=== PATIENT | male | born 1950 | race Caucasian/White ===

== ENCOUNTER → 2019-01-25 | Outpatient (CLI) | payer MEDICARE ==
[~2019-01-25] MED LIST: IOPAMIDOL 370 MG/ML 200 ML INFUS..BTL INJ ONE; SODIUM CHLORIDE 0.9% 100 ML 100 ML ONE; SODIUM CHLORIDE 0.9% 50ML 0 ML ONE
[2019-01-25 13:02] LABS: CREATININE, SERUM 1.24 mg/dL (0.72-1.25)
--- NOTE | 2019-01-25 15:06 | Diagnostic Imaging Report ---
EXAM: CT Abdomen and Pelvis WITH intravenous contrast - Hematuriaprotocol INDICATION: Hematuria COMPARISON: None. TECHNIQUE: Abdomen and pelvis were scanned utilizing a multidetector helical scanner from the lung base to the pubic symphysis before and after administration of IV contrast. Coronal and sagittal reformations were obtained. Hematuria protocol was used. Scan was performed prior to contrast administration and during arterial phase. IV CONTRAST: 100 mL of Isovue 370 ORAL CONTRAST: Water COMPLICATIONS: None RADIATION DOSE: Total DLP: 558.8 mGy*cm Dose modulation, iterative reconstruction, and/or weight based adjustment of the mA/kV was utilized to reduce the radiation dose to as low as reasonably achievable. FINDINGS: LOWER THORAX: Multiple bilateral pulmonary nodules, for example a 6 mm right lower lobe nodule adjacent to the major fissure (series 3 image 8), a lingular 5 mm nodule (series 3 image 13) and a left lower lobe 7 mm nodule (series 3 image 1). Atherosclerotic coronary artery calcifications. HEPATOBILIARY: 8 mm hypodensity in the right liver (series 6 image 29) is too small to adequately characterize. No other focal liver lesions. Normal gallbladder. SPLEEN: No splenomegaly. PANCREAS: No focal masses or ductal dilatation. ADRENALS: No adrenal nodules. KIDNEYS/URETERS: 9 mm left lower pole renal calculus. 4 mm right lower pole renal calculus. No hydronephrosis. No ureteral calculi. 2.5 cm left upper pole simple renal cyst. 1.4 cm right lower pole simple renal cyst. Arterial phase images do not adequately opacified the ureters and assessment cannot be reliably made for urothelial mass lesion. PELVIC ORGANS/BLADDER: Prostatomegaly to 5.5 cm. PERITONEUM / RETROPERITONEUM: No free air or fluid. LYMPH NODES: No lymphadenopathy. VESSELS: Infrarenal abdominal aortic aneurysm measures up to 6.4 x 6.3 cm with extensive mural thrombus. There is turbulent flow throughout the aortic lumen and decreased contrast enhancement of the lower extremity arteries beyond the aneurysm sac. 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 Extensive atherosclerotic calcifications of the aorta and major branches. GI TRACT: Sigmoid and descending colon diverticulosis. No CT evidence of diverticulitis. No abnormal bowel wall thickening. No bowel obstruction. Normal appendix. BONES AND SOFT TISSUES: No acute osseous injury. No suspicious lytic or blastic lesions. IMPRESSION: Large infrarenal abdominal aortic aneurysm measuring up to 6.4 x 6.3 cm with extensive mural thrombus. 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 9 mm left lower pole renal calculus. 4 mm right lower pole renal calculus. No hydronephrosis. Diverticulosis with no CT evidence of diverticuli is. Multiple bilateral pulmonary nodules, the largest of which measures up to 7 mm in the left lower lobe. Further evaluation with dedicated chest CT in 3 months is recommended. Signed by: Katia Goode MD on 01/25/2019 3:03 PM
== END ==
LOC: CT 12:19
PROVIDERS: ATTEND Family Medicine
DX: R31.9 Hematuria, unspecified (principal); N20.0 Calculus of kidney; R91.8 Other nonspecific abnormal finding of lung field; K76.9 Liver disease, unspecified; Z86.79 Personal history of other diseases of the circulatory system
CPT/HCPCS: 36415; 74174; 82565; 84520; Q9967

== ENCOUNTER → 2019-02-14 | Outpatient (CLI) | payer MEDICARE ==
--- NOTE | 2019-02-14 14:23 | Diagnostic Imaging Report ---
EXAMINATION: CHEST 2 VIEWS INDICATION: Pre-operative, COPD COMPARISON: None FINDINGS: LINES/TUBES:None LUNGS:The lungs are well-inflated. No focal consolidation or pulmonary edema. PLEURA:No pleural effusion or pneumothorax. MEDIASTINUM:The cardiomediastinal silhouette appears normal in size and shape. Atherosclerotic calcifications of the thoracic aorta. BONES/SOFT TISSUES:No acute osseous injury. ABDOMEN:No free air under the diaphragm. IMPRESSION: No focal pneumonia or pulmonary edema. Signed by: Katia Goode MD on 02/14/2019 2:19 PM
== END ==
LOC: RAD 13:14
PROVIDERS: ATTEND Internal Medicine Critical Care Medicine
DX: J44.9 Chronic obstructive pulmonary disease, unspecified (principal)
CPT/HCPCS: 71046

== ENCOUNTER → 2019-03-25 | Day surgery (SDC) | payer MEDICARE ==
[2019-03-20 12:31] LABS: BASOPHILS # (AUTO) 0.1 (0.0-0.1); BASOPHILS % 0.5 % (0.0-1.0); EOSINOPHILS # (AUTO) 0.1 (0.0-0.4); EOSINOPHILS % 1.3 % (0.0-6.0); HEMOGLOBIN 16.4 g/dL (14.0-18.0); LYMPHOCYTES # (AUTO) 1.9 (1.0-3.2); LYMPHOCYTES % 20.6 % (18.0-39.1); MEAN CORPUSCULAR HEMOGLOBIN 32.1 pg (28-32); MEAN CORPUSCULAR HGB CONC 34.9 g/dL (31-35); MONOCYTES # (AUTO) 0.7 (0.2-0.8); MONOCYTES % 7.4 % (4.4-11.3); NEUTROPHILS # (AUTO) 6.5 (2.1-6.9); NEUTROPHILS % 69.9 % (38.7-80.0); PLATELET COUNT 133 x10e3/uL (140-360); RED BLOOD COUNT 5.11 x10e6/uL (4.3-5.7)
[~2019-03-25] MED LIST changes: +ALPRAZOLAM1 MG PO; +ASPIR 8181 MG PO; +FENTANYL CITRATE/PF 100MCG/2 ML INJ ONE; +FISH OIL 1,0001 EAC2 PO; +FLOMAX0.4 MG PO; +HYOSCYAMINE 0.125 MG TAB ONE; -IOPAMIDOL 370 MG/ML 200 ML INFUS..BTL INJ ONE; +METAMUCIL660 GM PEG; +METOPROLOL SUCC50 MG PO; +MIDAZOLAM HCL 2 MG/2 ML VIAL ONE; +NICODERM CQ1 EAC1 TOP; +PROPOFOL IV EMULSION 10 MG/ML 50 ML VIAL ONE; -SODIUM CHLORIDE 0.9% 100 ML 100 ML ONE; -SODIUM CHLORIDE 0.9% 50ML 0 ML ONE; +VITAMIN D31000 UNI1 PO; +[UNRECOGNIZED DRUG - OTHER] PO
--- OUTSIDE RECORDS SUMMARY | 2019-03-25 11:56 | XMS REPORT ---
[facility] Address Unknown Phone Unavailable Care Team Providers Care Sales Performance Manager Name Role Phone VISHAL PACHECO Unavailable Unavailable KAVON KELLY Unavailable Unavailable Problems This patient has no known problems. Allergies, Adverse Reactions, Alerts This patient has no known allergies or adverse reactions. Medications This patient has no known medications. Results Test Description Test Time Test Comments Text Results Atomic Results Result Comments CHEST 2 VIEWS 2019-02-14 14:18:00 [place] [address] Patient Name: JOHNNY MORALES MR #: [id number] : 1950 Age/Sex: 68/M Req #: [id number] Adm Physician: Ordered by: VISHAL PACHECO MD Report #: [id number] Location: [facility] Room/Bed: Procedure: [id number] DX/CHEST 2 VIEWS Exam Date: 02/14/19 Exam Time: 1325 REPORT STATUS: Signed EXAMINATION: CHEST 2 VIEWS INDICATION: Pre-operative , COPD COMPARISON: None FINDINGS: LINES/TUBES:None LUNGS:The lungs are well-inflated. No focal consolidation or pulmonary edema. PLEURA:No pleural effusion or pneumothorax. MEDIASTINUM:The cardiomediastinal silhouette appears normal in size and shape. Atherosclerotic calcifications of the thoracic aorta. BONES/SOFT TISSUES:No acute osseous injury. ABDOMEN:No free air under the diaphragm. IMPRESSION: No focal pneumonia or pulmonary edema. Signed by: Adalberto Ji MD on 02/14/2019 2:19 PM Dictated By: ADALBERTO JI MD 18 Transcribed By: ALYSIA on 02/14/191418 COPY TO: VISHAL PACHECO MD CTA ABD/PELVIS 2019-01-25 14:49:00 [place] [address] Patient Name: JOHNNY MORALES MR #: [id number] : 1950 Age/Sex: 68/M Req #: [id number] Adm Physician: Ordered by: KAVON KELLY DO Report #: [id number] Location: CT Room/Bed: Procedure: [id number] CT/CTA ABD/PELVIS Exam Date: 01/25/19 Exam Time: 1340 REPORT STATUS: Signed EXAM: CT Abdomen and Pelvis WITH intravenous contrast - Hematu riaprotocol INDICATION: Hematuria COMPARISON: None. TECHNIQUE: Abdomen and pelvis were scanned utilizing a multidetector helical scanner from the lung base to the pubic symphysis before and after administration of IV contrast. Coronal and sagittal reformations were obtained. Hematuria protocol was used. Scan was performed prior to contrast administration and during arterial phase. IV CONTRAST: 100 mL of Isovue 370 ORAL CONTRAST: Water COMPLICATIONS: None RADIATION DOSE: Total DLP: 558.8 mGy*cm Dose modulation, iterative reconstruction, and/or weight based adjustment of the mA/kV was utilized to reduce the radiation dose to as low as reasonably achievable. FINDINGS: LOWER THORAX: Multiple bilateral pulmonary nodules, for example a 6 mm right lower lobe nodule adjacent to the major fissure (series 3 image 8), a lingular 5 mm nodule (series 3 image 13) and a left lower lobe 7 mm nodule (series 3 image 1). Atherosclerotic coronary artery calcifications. HEPATOBILIARY: 8 mm hypodensity in the right liver (series 6 image 29) is too small to adequately characterize. No other focal liver lesions. Normal gallbladder. SPLEEN: No splenomegaly. PANCREAS: No focal masses or ductal dilatation. ADRENALS: No adrenal nodules. KIDNEYS/URETERS: 9 mm left lower pole renal calculus. 4 mm right lower pole renal calculus. No hydronephrosis. No ureteral calculi. 2.5 cm left upper pole simple renal cyst. 1.4 cm right lower pole simple renal cyst. Arterial phase images do not adequately opacified the ureters and assessment cannot be reliably made for urothelial mass lesion. PELVIC ORGANS/BLADDER: Prostatomegaly to 5.5 cm. PERITONEUM / RETROPERITONEUM: No free air or fluid. LYMPH NODES: No lymphadenopathy. VESSELS: Infrarenal abdominal aortic aneurysm measures up to 6.4 x 6.3 cm with extensive mural thrombus. There is turbulent flow throughout the aortic lumen and decreased co ntrast enhancement of the lower extremity arteries beyond the aneurysm sac. 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 Extensive atherosclerotic calcifications of the aorta and major branches. GI TRACT: Sigmoid and descending colon diverticulosis. No CT evidence of diverticulitis. No abnormal bowel wall thickening. No bowel obstruction. Normal appendix. BONES AND SOFT TISSUES: No acute osseous injury. No suspicious lytic or blastic lesions. IMPRESSION: Large infrarenal abdominal aortic aneurysm measuring up to 6.4 x 6.3 cm with extensive mural thrombus. 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 9 mm left lower pole renal calculus. 4 mm right lower pole renal calculus. No hydronephrosis. Diverticulosis with no CT evidence of diverticuli is. Multiple bilateral pulmonary nodules, the largest of which measures up to 7 mm in the left lower lobe. Further evaluation with dedicated chest CT in 3 months is recommended. Signed by: Adalberto Ji MD on 01/25/2019 3:03 PM Dictated By: ADALBERTO JI MD [id number] Transcribed By: ALYSIA on 01/25/19 1508 COPY TO: KAVON KELLY DO
--- NOTE | 2019-03-25 17:38 | Operative Report ---
DATE OF PROCEDURE: 03/25/2019 SURGEON: Tono Leung MD PROCEDURE: Colonoscopy with polypectomy. INDICATIONS FOR COLONOSCOPY: Surveillance colonoscopy, personal history of colon polyps, positive Cologuard test. MEDICATIONS: The patient was done under MAC, please see anesthesiologist's note. PROCEDURE IN DETAIL: With the patient in left lateral decubitus position, a flexible fiberoptic Olympus colonoscope was inserted into the rectum with ease and advanced all the way to the cecum. It was then withdrawn slowly and scattered diverticular disease was noted pretty much throughout. The mucosa overlying the ascending colon grossly appeared to be within normal limits. One polyp was hot snared from the transverse colon. One polyp was hot snared and one polyp was cold snared from the descending colon. Five polyps were hot snared from the sigmoid colon. One polyp was hot snared and one polyp was hot biopsied from the rectum. The scope was then retroflexed into the distal rectum and small internal hemorrhoids were noted, none of which was actively bleeding. The scope was then straightened out, it was subsequently withdrawn. The patient tolerated the procedure well. IMPRESSION: 1. Diverticulosis. 2. Transverse colon polyp, hot snared. 3. Descending colon polyps x2, one hot snared and one cold snared. 4. Sigmoid colon polyps x5, hot snared. 5. Rectal polyps x2, one hot biopsied and one hot snared. 6. Internal hemorrhoids, none actively bleeding. PLAN: Follow up histology. Initiate high-fiber, low-fat diet. Initiate high-fiber supplement. The patient might benefit from a followup colonoscopy in 1 to 2 years. A total of 10 polyps were removed. Tono Leung MD [facility] [place], [place]/GUY /[id number] cc: DO Bismark Kaufman MD
== END | disposition home or self-care (01) ==
LOC: OR 11:53
PROVIDERS: ATTEND Internal Medicine Gastroenterology
DX: R19.5 Other fecal abnormalities (principal); D12.3 Benign neoplasm of transverse colon; D12.4 Benign neoplasm of descending colon; D12.5 Benign neoplasm of sigmoid colon; K62.1 Rectal polyp; K62.5 Hemorrhage of anus and rectum; K59.09 Other constipation; K57.30 Diverticulosis of large intestine without perforation or abscess without bleeding; K62.89 Other specified diseases of anus and rectum; K64.8 Other hemorrhoids; I10 Essential (primary) hypertension; J44.9 Chronic obstructive pulmonary disease, unspecified; I71.4 Abdominal aortic aneurysm, without rupture; Z88.0 Allergy status to penicillin; Z88.2 Allergy status to sulfonamides; Z79.82 Long term (current) use of aspirin; Z87.891 Personal history of nicotine dependence
CPT/HCPCS: 36415; 45384; 45385; 85025; 88305; J2250; J2704; J3010

== ENCOUNTER 2019-07-06 03:56 | Observation (INO) | payer MEDICARE ==
[~2019-07-06] VITALS: Ht 172.7 cm; Wt 77.1 kg
[~2019-07-06 03:56] MED LIST changes: -FENTANYL CITRATE/PF 100MCG/2 ML INJ ONE; -HYOSCYAMINE 0.125 MG TAB ONE; -MIDAZOLAM HCL 2 MG/2 ML VIAL ONE; -PROPOFOL IV EMULSION 10 MG/ML 50 ML VIAL ONE
[2019-07-06] MEDS ORDERED: ONDANSETRON HCL INJ 2MG/ML 2ML 2 MG/ML VIAL IV STA (04:08)
[2019-07-06] MEDS ORDERED: KETOROLAC TROMETHAMINE 30 MG/ML VIAL IV STA ×2 (04:08→06:28)
[2019-07-06] MEDS ORDERED: SODIUM CHLORIDE 0.9% 1000ML 1,000 ML IV SCH (04:15)
[2019-07-06 04:17] LABS: BASOPHILS % 0.4 % (0.0-1.0); EOSINOPHILS % 0.1 % (0.0-6.0); HEMATOCRIT 45.1 % (38.2-49.6); HEMOGLOBIN 15.2 g/dL (14.0-18.0); LYMPHOCYTES # (AUTO) 1.7 (1.0-3.2); LYMPHOCYTES % 16.7 % (18.0-39.1); MEAN CORPUSCULAR HEMOGLOBIN 29.9 pg (28-32); MEAN CORPUSCULAR HGB CONC 33.7 g/dL (31-35); MEAN CORPUSCULAR VOLUME 88.6 fL (81-99); MONOCYTES # (AUTO) 0.6 (0.2-0.8); MONOCYTES % 5.7 % (4.4-11.3); NEUTROPHILS # (AUTO) 7.9 (2.1-6.9); NEUTROPHILS % 76.7 % (38.7-80.0); PLATELET COUNT 138 x10e3/uL (140-360); RED BLOOD COUNT 5.09 x10e6/uL (4.3-5.7); RED CELL DISTRIBUTION WIDTH 12.7 % (11.7-14.4)
[2019-07-06] MEDS ORDERED: SODIUM CHLORIDE 0.9% 1000ML 1,000 ML ONE (04:22)
[2019-07-06 04:24] LABS: BILIRUBIN,URINE NEGATIVE (NEGATIVE); CLARITY,URINE CLEAR (CLEAR); COLOR,URINE YELLOW (YELLOW); KETONES,URINE NEGATIVE (NEGATIVE); LEUKOCYTE ESTERASE ,URINE NEGATIVE (NEGATIVE); NITRITE,URINE NEGATIVE (NEGATIVE); PROTEIN,URINE DIPSTICK NEGATIVE (NEGATIVE); URINE UROBILINOGEN 0.2 mg/dL (0.2 - 1)
[2019-07-06 04:34] LABS: ALBUMIN/GLOBULIN RATIO 1.1 (0.8-2.0); ANION GAP 13.8 mmol/L (8-16); BACTERIA,URINE FEW /HPF; CALCIUM 9.2 mg/dL (8.4-10.2); CREATININE, SERUM 1.43 mg/dL (0.72-1.25); EPITHELIAL CELLS,URINE FEW /LPF; POTASSIUM 3.8 mmol/L (3.5-5.1); RBC,URINE 21-50 /HPF (0-5)
[2019-07-06 04:35] LABS: MUCUS,URINE FEW (RARE)
[2019-07-06 05:04] LABS: CREATINE KINASE 36 IU/L (30-200)
[2019-07-06] MEDS ORDERED: IOPAMIDOL 370 MG/ML 200 ML INFUS..BTL INJ ONE (05:06)
[2019-07-06] MEDS ORDERED: SODIUM CHLORIDE 0.9% 100 ML ONE (05:06)
--- NOTE | 2019-07-06 06:22 | Diagnostic Imaging Report ---
EXAM: CTA Abdomen and Pelvis WITHOUT and WITH intravenous contrast INDICATION: Abdominal aortic aneurysm, abdominal pain COMPARISON: CT abdomen and pelvis of 01/25/2019 TECHNIQUE: Abdomen and pelvis were scanned utilizing a multidetector helical scanner from the lung base to the pubic symphysis before and after administration of IV contrast. CT Angiogram protocol was performed. 3D reconstruction was performed and viewed on dedicated workstation. Dose modulation, iterative reconstruction, and/or weight based adjustment of the mA/kV was utilized to reduce the radiation dose to as low as reasonably achievable. IV CONTRAST: 100mL of Isovue 370 ORAL CONTRAST: None RADIATION DOSE: Total DLP: 786 mGy*cm Dose modulation, iterative reconstruction, and/or weight based adjustment of the mA/kV was utilized to reduce the radiation dose to as low as reasonably achievable. FINDINGS: VASCULAR: Postoperative findings of repair of abdominal aortic aneurysm previously seen on 01/25/2019. Widely patent graft with no evidence of rupture or impending rupture. Moderate calcified and noncalcified atherosclerotic plaque involving the abdominal aorta, which has a maximum diameter of 2.9 cm at the level of the SMA origin. The left common iliac artery is ectatic, measuring up to 1.7 cm. Small focal dissection of the left common iliac artery measuring up to 9 mm. Moderate atherosclerotic plaque involves the internal and external iliac arteries, resulting in moderate luminal narrowing of the left external iliac artery. [place] right external iliac artery remains patent and connects with the graft just proximal to the femoral bifurcation. The celiac and SMA are patent. The MONICA is not visualized. Single right and single left renal arteries are patent. LOWER THORAX: Normal. HEPATOBILIARY: Subcentimeter nonspecific right liver hypodense lesion. No other focal liver lesions. No biliary ductal dilation. Decompressed gallbladder. SPLEEN: No splenomegaly. PANCREAS: No focal masses or ductal dilatation. ADRENALS: No adrenal nodules. KIDNEYS/URETERS: 8 mm left proximal ureteral calculus with associated moderate to severe left hydroureteronephrosis and left perinephric fat stranding. No right renal calculi or hydronephrosis. Bilateral renal cysts. PELVIC ORGANS/BLADDER: Unremarkable. PERITONEUM / RETROPERITONEUM: No free air or fluid. LYMPH NODES: No lymphadenopathy. GI TRACT: Diverticulosis without CT evidence of diverticulitis. No abnormal bowel thickening. No bowel obstruction. Normal appendix. BONES AND SOFT TISSUES: No acute osseous injury. No suspicious lytic or blastic lesions. IMPRESSION: Status post abdominal aortic aneurysm repair. No evidence of aneurysm recurrence, rupture, or impending rupture. Obstructing left proximal ureteral 8mm calculus with resulting moderate to severe left hydroureteronephrosis and perinephric fat stranding suggestive of secondary upper urinary tract infection. Signed by: Katia Goode MD on 07/10/2019 10:02 AM
[2019-07-06] MEDS ORDERED: XANAX0.5 MG PO (06:35)
[2019-07-06] MEDS ORDERED: CEFEPIME HCL 1 GM VIAL IV SCH (06:45)
[2019-07-06] MEDS ORDERED: ONDANSETRON HCL INJ 2MG/ML 2ML 2 MG/ML VIAL IV PRN (06:45)
[2019-07-06] MEDS ORDERED: MORPHINE SULFATE INJ 4 MG/ML INJ 1ML IV PRN (06:45)
--- NOTE | 2019-07-06 06:47 | NUR ---
Report to JOHNNIE Barahona
[2019-07-06] MEDS ORDERED: CEFEPIME 1GM/NS 0.9% 50 ML 50 ML IV ONE (07:00)
[2019-07-06 07:51] LABS: PLATELET ESTIMATE MODERATELY DECREASED; PLATELET MORPHOLOGY COMMENT FEW LARGE
--- NOTE | 2019-07-06 10:16 | NUR ---
per dr cardona he wants to tentatively perform procedure at 0030 07/07/2019 and keep pt npo; order repeated back and confirmed
[2019-07-06 12:02] VITALS: BP 163/88
[2019-07-06 12:06] VITALS: BP 163/88
--- NOTE | 2019-07-06 12:23 | NUR ---
patient received via WC preped for surgery and gone to OR> see admit assess. sinus rhythm on monitor. vitals stable with no distress at time to OR.
[2019-07-06] MEDS ORDERED: B&O 60MG R/S 60 MG SUPP PR ONE (13:06)
[2019-07-06] MEDS ORDERED: IOPAMIDOL 300MG/ML 50ML INFUS..BTL IV ONE (13:06)
[2019-07-06] MEDS ORDERED: ACETAMINOPHEN/CODEINE 300MG - 30MG TAB PO PRN (13:30)
--- NOTE | 2019-07-06 14:09 | NUR ---
patient back from OR. no complaints or pain. vitals stable with no distress.
[2019-07-06 16:00] VITALS: BP 149/86
[2019-07-06] MEDS: CEFUROXIME AXETIL 250 MG TAB PO SCH (17:10)
[2019-07-06] MEDS: PHENAZOPYRIDINE HCL 100 MG TAB PO SCH (17:10)
--- NOTE | 2019-07-06 17:27 | Consultation ---
DATE OF CONSULTATION: 07/06/2019 Urology Consultation REASON FOR CONSULTATION: Obstructive uropathy. HISTORY OF PRESENT ILLNESS: Prudencio Bourgeois is a 69-year-old man, who has a history of urinary tract infections. Upon workup for the urinary tract infections, the patient's primary doctor did a C,T which showed stones. The patient, however, had a very large abdominal aortic aneurysm as well as a secondary aneurysm and needed that addressed first. The patient had severe left-sided flank pain, reported to the emergency room, was found to have obstructive large proximal ureterolithiasis. Urological consultation was subsequently sought. The patient denies gross hematuria. He also denies any significant urinary obstructive symptoms at this time, this will be further assessed later. PAST MEDICAL AND SURGICAL HISTORY: 1. Status post colonoscopy and polypectomy. 2. Status post open repair of an abdominal aortic aneurysm as well as distal aneurysms. 3. Hypertension. ALLERGIES: PENICILLIN AND SULFA. CURRENT MEDICATIONS: Please refer to the MAR. SOCIAL HISTORY: The patient quit smoking a number of years ago. Denies current smoking or ethanol drug use. He has a supportive sister at the bedside. The patient used to work in a [employer] plant as well as for the [employer]. FAMILY HISTORY: Noncontributory to the active urological problems. REVIEW OF SYSTEMS: Consistent with above history of present illness, past medical history, otherwise negative for all systems. PHYSICAL EXAMINATION: GENERAL: Very pleasant 69-year-old man, sitting up in bed, no apparent distress. VITAL SIGNS: He is currently afebrile. Vital signs are currently stable. ABDOMEN: Soft, nondistended, slightly tender in the left flank with mild left-sided costovertebral angle tenderness. KIDNEYS: Not palpable without hepatosplenomegaly. No obvious evidence of hernia. GENITOURINARY: Testes descended bilaterally. Testes and epididymides bilaterally palpably normal. The patient has a normal male phallus with normal meatus without any lesion. Digital rectal examination is deferred at the present time. For the remaining physical examination systems, please refer to the ERT sheet and history and physical. LABORATORY STUDIES: Urine culture is pending. White blood cell count is 10,320, hemoglobin 15.2, and platelets are low at 138,000. The patient's creatinine is elevated at 1.43 on January 25, 2019. The patient's creatinine was 1.24. Urinalysis significant for 21 to 50 rbc's, 11 to 20 wbc's, few bacteria. CT scan of the abdomen and pelvis reveals an 8 mm proximal left ureteral stone with moderate hydroureteronephrosis and a 3 mm nonobstructing right renal stone. There is bilateral renal cysts present as well. The patient was also noted to have prostatic hypertrophy and bladder wall thickening consistent with bladder outlet obstruction. ASSESSMENT: 1. Urinary tract infections. 2. Left obstructing large ureterolithiasis. 3. Left hydronephrosis due to stone. 4. Left renal colic. 5. Right nonobstructing nephrolithiasis. 6. Thrombocytopenia. 7. Acute renal failure. 8. Microhematuria. 9. Bilateral renal cysts. 10. Obstructive benign prostatic hyperplasia. PLAN: 1. The patient needs cystoscopy and placement of a stent. He will need management of his stone at a later setting. 2. I instructed the patient and his sister that he will have a temporary indwelling ureteral stent, requires followup and removal of potential dire consequences of noncompliance. 3. The patient was given antibiotics, one dose. I recommend continuing antibiotic regimen while the patient is in the hospital. 4. Ongoing urological followup is must. Thank you very much for involving us in the care of your patient. We will be happy to follow along with you as well as an outpatient. Samuel Capone MD [place]/[facility] /[id number] cc: Thomas Beckman DO
[2019-07-06] MEDS ORDERED: ONDANSETRON HCL INJ 2MG/ML 2ML 2 MG/ML VIAL ONE (19:01)
[2019-07-06] MEDS ORDERED: LIDOCAINE HCL 2% LOCAL INJ 5 ML SDV VIAL INJ ONE (19:01)
[2019-07-06] MEDS ORDERED: DEXAMETHASONE SOD PHOS INJ 4 MG/ML VIAL ONE (19:01)
[2019-07-06] MEDS ORDERED: SEVOFLURANE INHAL SOLN 250 ML PEN BTL ONE (19:01)
[2019-07-06] MEDS ORDERED: ESMOLOL HCL 100MG/10ML 10 MG/ML VIAL ONE (19:01)
[2019-07-06] MEDS ORDERED: PROPOFOL IV EMULSION 10 MG/ML 20 ML VIAL ONE (19:01)
[2019-07-06 20:00] VITALS: BP 130/76
--- NOTE | 2019-07-06 20:48 | Operative Report ---
DATE OF PROCEDURE: 07/06/2019 SURGEON: Samuel Capone MD PREOPERATIVE DIAGNOSES: 1. Left ureterolithiasis. 2. Left hydronephrosis due to stone. 3. Urinary tract infection. 4. Microhematuria. POSTOPERATIVE DIAGNOSES: 1. Left ureterolithiasis. 2. Left hydronephrosis due to stone. 3. Urinary tract infection. 4. Microhematuria. OPERATION PERFORMED: 1. Cystourethroscopy with bilateral ureteral catheterization and retrograde ureteropyelography (separate procedure performed for the urinary tract infection and microhematuria). 2. Interpretation of retrograde ureteropyelography. 3. Supervision of fluoroscopy, no radiologist present. 4. Cystourethroscopy with manipulation of ureteral stone from the proximal ureter to the renal pelvis (separate procedure performed for the diagnosis of stone, done to prepare the stone for a more successful lithotripsy). 5. Cystourethroscopy with insertion of left indwelling ureteral stent (separate procedure performed to relieve the hydronephrosis). ANESTHESIA: General. COMPLICATIONS: None. CLINICAL SUMMARY: Prudencio Bourgeois is a 69-year-old man with the above preoperative diagnoses. He is brought for the above procedures. He is aware of the risks of bleeding, infection, injury to adjacent structures, need for additional procedures and elected to proceed. He also understands that he will have a temporary indwelling ureteral stent that requires followup and removal. He also understands that we will not be breaking up the stone today. He understood all these risks and elected to proceed. OPERATIVE PROCEDURE IN DETAIL: Informed consent was verified. Prudencio Bourgeois was properly identified, taken to the operating room, placed on the cystoscopy table in supine position. Anesthesia was uneventfully begun. The patient was then carefully gently repositioned in the dorsal lithotomy position with all pressure points well padded. His genitalia were prepared and draped in usual sterile fashion. The 21-Singaporean cystoscope sheath with a visual obturator in place was atraumatically inserted into the patient's urethra, it was guided unremarkable, urethra passed through normal sphincteric region through the prostate bed, which was significant for visually obstructing BPH with elevated median bar, but no median lobe. We entered the patient's bladder where panendoscopy revealed mild trabeculations and normally positioned configured ureteral orifices were identified. No suspicious mucosal lesions were noted. There were no tumors. There were no stones. A ureteral catheter was used to cannulate the right ureter and retrograde ureteral pyelograms performed, it was then inserted into left ureter and retrograde ureteropyelography performed. The open-ended catheter was then advanced into the left ureter and guided to the level of the patient's stone. We tapped on the stone gently and immediately floated up into the renal pelvis. We obtained a clear hydronephrotic drip and sent for it culture and sensitivity. With cystoscopic and fluoroscopic guidance, a left-sided indwelling ureteral stent was placed, it was coiled in the patient's kidney as well as the patient's bladder. The retaining suture was cut short. Interpretation of retrograde ureteropyelography, contrast was present from the patient's CT with contrast, which was performed earlier today. There were still contrast being excreted on the right-hand side. The bladder was full contrast. The left kidney had dense nephrogram to the level of the obstructing proximal ureteral stone. The contrast was injected in retrograde fashion bilaterally. The right side was unremarkable. There were no tumors. I could not visualize the 3 mm stone noted on CT. There was no hydronephrosis and unobstructed drainage was observed fluoroscopically. The left side exhibited an unremarkable ureter. The stone floated into the renal pelvis what appeared to the filling defect. The stent was in good position, coiled the patient's kidney as well as the patient's bladder at the end of the case. The patient's bladder was drained, cystoscope was withdrawn. Belladonna and opium suppository were placed revealing a 35 g prostate that is smooth, nonfluctuant without any nodules. The patient was then uneventfully reversed from anesthesia and taken to recovery room in stable condition. Plan will be to follow the patient during his inpatient stay. I ordered repeat laboratory tests for tomorrow to ensure that his kidney function and his creatinine returns to normal. I also ordered a KUB for tomorrow morning to see whether or not we can visualize the left renal stone in preparation for surgical planning for ESWL. Samuel Capone MD [place]/[facility] /[id number] cc: Thomas Beckman DO
[2019-07-07] VITALS: BP 117/66
[2019-07-07 04:00] VITALS: BP 122/69
[2019-07-07 05:27] LABS: BASOPHILS % 0.2 % (0.0-1.0); HEMATOCRIT 38.7 % (38.2-49.6); HEMOGLOBIN 12.6 g/dL (14.0-18.0); LYMPHOCYTES # (AUTO) 1.3 (1.0-3.2); LYMPHOCYTES % 15.7 % (18.0-39.1); MEAN CORPUSCULAR HEMOGLOBIN 29.3 pg (28-32); MEAN CORPUSCULAR HGB CONC 32.6 g/dL (31-35); MONOCYTES # (AUTO) 0.6 (0.2-0.8); NEUTROPHILS # (AUTO) 6.2 (2.1-6.9); NEUTROPHILS % 76.6 % (38.7-80.0); PLATELET COUNT 128 x10e3/uL (140-360); RED CELL DISTRIBUTION WIDTH 12.9 % (11.7-14.4)
[2019-07-07 05:52] LABS: ANION GAP 10.6 mmol/L (8-16); CALCIUM 8.9 mg/dL (8.4-10.2); CREATININE, SERUM 1.25 mg/dL (0.72-1.25); POTASSIUM 4.6 mmol/L (3.5-5.1)
--- NOTE | 2019-07-07 06:33 | Diagnostic Imaging Report ---
Abdomen/KUB INDICATION: ^follow up stone to see if can visualize for ESWL ^[id number] ^[id number] COMPARISON: Retrograde pyelogram 07/06/2019, CTA abdomen/pelvis 07/06/2019. FINDINGS: Medical Devices: Left ureteral stent extends from the left renal shadow into the urinary bladder. No evidence of calculus along its course. An aortic graft is not visible radiographically. Bowel: Unremarkable bowel gas pattern. No dilated bowel loops Free air: None Abdominal calcifications: Calcification in the lower pole of the left kidney measures 8 mm. This was moved from the proximal ureter on CT into the renal collecting system during the pyelogram. Organomegaly: None Bones: No focal osseous lesions. IMPRESSION: 8 mm calculus in a lower pole calyx of the left kidney. Interval placement of left ureteral stent. Signed by: Dr. Laura Carney MD on 07/07/2019 6:30 AM
--- NOTE | 2019-07-07 07:15 | NUR ---
Bedside report and walking rounds completed with oncoming nurse. Patient stable and in bed, no issues or concerns noted. Call light within reaching.
[2019-07-07 08:11] VITALS: BP 138/81
[2019-07-07] MEDS ORDERED: ASPIRIN 81 MG CHEW TAB PO SCH (09:00)
[2019-07-07] MEDS ORDERED: METOPROLOL SUCCINATE 50 MG TAB XL PO SCH (09:00)
[2019-07-07 09:08] VITALS: BP 138/81
[2019-07-07] MEDS: PHENAZOPYRIDINE HCL 100 MG TAB PO SCH ×3 (09:41→17:11)
[2019-07-07] MEDS: CEFUROXIME AXETIL 250 MG TAB PO SCH ×2 (09:41→17:11)
[2019-07-07] MEDS: TAMSULOSIN HCL 0.4 MG CAP PO SCH ×2 (09:41→17:11)
[2019-07-07 11:41] VITALS: BP 151/80
[2019-07-07 15:40] VITALS: BP 150/83
== END 2019-07-07 19:04 | disposition home or self-care (01) ==
LOC: ER 03:56 → ERHOLD 06:39 → IMCU 11:41
PROVIDERS: ADMIT Internal Medicine; ATTEND Internal Medicine
DX: N13.2 Hydronephrosis with renal and ureteral calculous obstruction (principal); N17.9 Acute kidney failure, unspecified; Z88.0 Allergy status to penicillin; Z88.2 Allergy status to sulfonamides; N18.3 Chronic kidney disease, stage 3 (moderate); I12.9 Hypertensive chronic kidney disease with stage 1 through stage 4 chronic kidney disease, or unspecified chronic kidney disease; N39.0 Urinary tract infection, site not specified; D69.6 Thrombocytopenia, unspecified; R31.29 Other microscopic hematuria; N40.1 Benign prostatic hyperplasia with lower urinary tract symptoms; N13.8 Other obstructive and reflux uropathy; Z82.49 Family history of ischemic heart disease and other diseases of the circulatory system
CPT/HCPCS: 36415 ×2; 52330; 52332; 74018; 74174; 74420; 80048; 80053; 81001; 82550; 82553; 83970; 84484; 84550; 85025 ×2; 87086; 93005; 99284; C1758; C2617; G0378 ×2; J0692; J1885; J2405; J7030; J7050; Q9967 ×2; J1100; J2001

== ENCOUNTER → 2019-07-25 | Day surgery (SDC) | payer MEDICARE ==
[2019-07-24 10:59] LABS: BASOPHILS % 0.6 % (0.0-1.0); EOSINOPHILS # (AUTO) 0.2 (0.0-0.4); EOSINOPHILS % 2.9 % (0.0-6.0); HEMATOCRIT 43.2 % (38.2-49.6); HEMOGLOBIN 14.4 g/dL (14.0-18.0); LYMPHOCYTES # (AUTO) 2.1 (1.0-3.2); LYMPHOCYTES % 33.5 % (18.0-39.1); MEAN CORPUSCULAR HEMOGLOBIN 29.3 pg (28-32); MEAN CORPUSCULAR HGB CONC 33.3 g/dL (31-35); MEAN CORPUSCULAR VOLUME 87.8 fL (81-99); MONOCYTES # (AUTO) 0.6 (0.2-0.8); MONOCYTES % 8.9 % (4.4-11.3); NEUTROPHILS # (AUTO) 3.4 (2.1-6.9); NEUTROPHILS % 53.9 % (38.7-80.0); PLATELET COUNT 153 x10e3/uL (140-360); RED BLOOD COUNT 4.92 x10e6/uL (4.3-5.7); RED CELL DISTRIBUTION WIDTH 12.8 % (11.7-14.4)
--- NOTE | 2019-07-24 11:35 | Diagnostic Imaging Report ---
Exam: KUB - 2 views Indication: Preoperative Comparison: KUB of 07/07/2019, CT abdomen and pelvis of 07/06/2019 Findings: Left internal nephroureteral stent in place. Calcific density overlying the left proximal ureter measures up to 7 mm. Calcific densities overlying the right kidney measure 4 mm at the mid pole and 3 mm at the lower pole. Nonobstructive bowel gas pattern. No free air. No acute osseous injury. Impression: Left internal nephroureteral stent in place. Left proximal ureteral calculus measures up to 7 mm. Right renal calculi measure up to 4 mm. Signed by: Katia Goode MD on 07/24/2019 11:32 AM
[~2019-07-25] MED LIST changes: +CEFTRIAXONE SOD 1 GM VIAL ONE; +FENTANYL CITRATE/PF 100MCG/2 ML INJ ONE; +LIDOCAINE HCL 2% LOCAL INJ 5 ML SDV VIAL INJ ONE; -METAMUCIL660 GM PEG; +METAMUCIL660 GM PO; +ONDANSETRON HCL INJ 2MG/ML 2ML 2 MG/ML VIAL ONE; +PROPOFOL IV EMULSION 10 MG/ML 20 ML VIAL ONE; +SEVOFLURANE INHAL SOLN 250 ML PEN BTL ONE; +XANAX0.5 MG PO
[2019-07-25 08:50] VITALS: BP 142/81
--- NOTE | 2019-08-09 21:07 | Operative Report ---
DATE OF PROCEDURE: 07/25/2019 SURGEON: Samuel Capone MD PREOPERATIVE DIAGNOSIS: Left proximal ureterolithiasis. POSTOPERATIVE DIAGNOSIS: Left proximal ureterolithiasis. OPERATION PERFORMED: 1. Staged left-sided extracorporeal shockwave lithotripsy. 2. Supervision of fluoroscopy, no radiologist present. ANESTHESIA: General. COMPLICATIONS: None. CLINICAL SUMMARY: Prudencio Bourgeois is a 69-year-old man, who has both right and left urolithiasis. He is brought for left ESWL. He is aware of the risks of bleeding, infection, injury to adjacent structures, need for additional procedures, and elected to proceed. OPERATIVE PROCEDURE IN DETAIL: Informed consent was verified. Prudencio Bourgeois was properly identified, taken to the operating room, placed on the lithotripsy table in supine position. Anesthesia was uneventfully begun. The patient's left ureterolithiasis was localized with biplanar fluoroscopy. A total of 3000 shocks were delivered with fragmentation noted. The patient was then uneventfully reversed from anesthesia and taken to recovery room in stable condition. There were no complications to the procedure. He tolerated the procedure well. Plans will be to return the patient to the operating room for right extracorporeal shockwave lithotripsy in conjunction with left ureteroscopy and stent removal. Hopefully, we will be able to render the patient stent-free and stone-free at that procedure. Ongoing urological followup for metabolic stone workup as well as long-term urological followup is a must. Samuel Capone MD [place]/[facility] /[id number] cc: Thomas Beckman DO
== END | disposition home or self-care (01) ==
LOC: OR 05:15
PROVIDERS: ATTEND Urology
DX: N20.1 Calculus of ureter (principal); Z96.0 Presence of urogenital implants; J44.9 Chronic obstructive pulmonary disease, unspecified; N40.0 Benign prostatic hyperplasia without lower urinary tract symptoms; Z21 Asymptomatic human immunodeficiency virus [HIV] infection status; D64.9 Anemia, unspecified; F41.9 Anxiety disorder, unspecified; Z88.6 Allergy status to analgesic agent; Z88.0 Allergy status to penicillin; Z88.2 Allergy status to sulfonamides; Z01.810 Encounter for preprocedural cardiovascular examination; Z01.812 Encounter for preprocedural laboratory examination; Z01.818 Encounter for other preprocedural examination; Z79.82 Long term (current) use of aspirin; Z87.891 Personal history of nicotine dependence
CPT/HCPCS: 36415; 50590; 74018; 85025; 93005; J0696; J2001; J2405; J2704; J3010

== ENCOUNTER → 2019-08-16 | Day surgery (SDC) | payer MEDICARE ==
[~2019-08-16] MED LIST changes: +B&O 60MG R/S 60 MG SUPP PR ONE; -CEFTRIAXONE SOD 1 GM VIAL ONE; +CEFTRIAXONE SOD 1 GM/NS 50 ML 50 ML IV ONE; +DEXAMETHASONE SOD PHOS INJ 4 MG/ML VIAL ONE; +IOPAMIDOL 300MG/ML 50ML INFUS..BTL IV ONE; +MIDAZOLAM HCL 2 MG/2 ML VIAL ONE
--- NOTE | 2019-08-16 10:19 | Diagnostic Imaging Report ---
EXAM: ABDOMEN-1VIEW (KUB) DATE: 08/16/2019 9:26 AM INDICATION: Preoperative evaluation COMPARISON: 07/24/2019 FINDINGS/IMPRESSION: Left-sided double-J ureteral stent identified in stable position. Two stable appearing calcifications are noted overlying the right renal shadow measuring up to 4 mm. The proximal left ureteral stone is not well-visualized on today's examination. There is a 3 mm calcification identified projecting over the inferior pole of the left kidney. Bowel gas pattern is nonobstructive. No acute osseous abnormality identified. Signed by: Dr. Anuel Chinchilla MD on 08/16/2019 10:16 AM
[2019-08-16 12:05] VITALS: BP 150/85
--- NOTE | 2019-08-17 02:20 | Operative Report ---
DATE OF PROCEDURE: 08/16/2019 SURGEON: Samuel Capone MD PREOPERATIVE DIAGNOSES: 1. Bilateral nephrolithiasis. 2. Left indwelling ureteral stent. POSTOPERATIVE DIAGNOSES: 1. Bilateral nephrolithiasis. 2. Left indwelling ureteral stent. 3. Left ureterolithiasis. OPERATIONS PERFORMED: Note, these were all staged procedures as part of a multistage, multistep process in managing the patient's urolithiasis. 1. Right-sided extracorporeal shockwave lithotripsy (separate procedure performed for right nephrolithiasis, done from separate approach). 2. Cystourethroscopy with complicated removal of left indwelling ureteral stent (separate procedure performed for the diagnosis of stent, done with separate scope). 3. Left semi-rigid ureteroscopy with stone manipulation and extraction (separate procedure performed for left ureterolithiasis, done with a rigid ureteroscope). 4. Left ureteroscopy with stone manipulation and extraction (separate procedure performed with flexible ureteroscope for the nephrolithiasis). 5. Radiological services with supervision and interpretation of ureteroscopy. 6. Interpretation of retrograde ureteropyelography. 7. Supervision of fluoroscopy, no radiologist present. ANESTHESIA: General. COMPLICATIONS: None. CLINICAL SUMMARY: Prudencio Bourgeois is a 69-year-old man, who has had lithotripsy and stent. He is brought for the above procedures. He has passed a significant amount of sand that he brought and we will send for chemical analysis. He is aware of the risks of bleeding, infection, injury to adjacent structures, need for additional procedures, and elected to proceed. OPERATIVE PROCEDURE IN DETAIL: Informed consent verified. Prudencio Bourgeois was properly identified, taken to the operating room, and placed on the lithotripsy table in supine position. Anesthesia was uneventfully begun. The patient's right nephrolithiasis was localized with biplanar fluoroscopy. A total of 3000 shocks were delivered with fragmentation noted. The patient was carefully and gently repositioned in dorsal lithotomy position with all pressure points were padded. His genitalia were prepared and draped in usual sterile fashion. The cystoscope sheath with the visual obturator in place was atraumatically inserted into the patient's urethra, was guided unremarkable distal urethra through some wide caliber, not clinically significant stricture at the bulbar region through the normal sphincteric region, through the prostate bed, which was significant for visually obstructing BPH and into the patient's bladder. Panendoscopy revealed a stent emerging from the left ureteral orifice. A guidewire was then placed alongside the stent and guided to the level of the patient's kidney. The stent was then grasped completely, removed, and discarded. A semi-rigid ureteroscopy was performed, which reached the ureteroscope under direct vision through the extra stiff guidewire, where we identified stones. These stones were grasped and extracted. A flexible ureteroscope was then placed over the guidewire and guided to the level of the patient's kidney. 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 There was mostly sand, it was too small to grasp. One significantly sized stone fragment was grasped and extracted atraumatically. Carefully re-examined the ureter, which exhibited no abnormalities. The patient bladder was drained and cystoscope was withdrawn. Belladonna and opium suppository were placed revealing a 40 g prostate, that is smooth and non-fluctuant without any nodules. The patient was then uneventfully reversed from anesthesia and taken to recovery room in stable condition. There were no complications to the procedure. He tolerated the procedure well. Explicit postop instructions were given. We will follow the patient up in the office. Interpretation of retrograde ureteropyelography contrast was instilled in retrograde fashion. The left hand side revealed chronic appearing hydronephrosis. There was no extravasation. I could not see any filling defects upon contrast injection as the stones were small. Unobstructed drainage was observed fluoroscopically. There were no complications to the procedure. The patient the tolerated well. Estimated blood loss was minimal. Explicit postop instructions were given. We will follow the patient up in the office. Upon followup, we will most likely do uroflowmetry and bladder ultrasonography to evaluate the patient's voiding in light of his BPH. Samuel MD [place]/[facility] /[id number] cc: Thomas Beckman DO
== END | disposition home or self-care (01) ==
LOC: OR 08:51
PROVIDERS: ATTEND Urology
DX: N20.0 Calculus of kidney (principal); N20.1 Calculus of ureter; Z46.6 Encounter for fitting and adjustment of urinary device; N40.0 Benign prostatic hyperplasia without lower urinary tract symptoms; N28.89 Other specified disorders of kidney and ureter; N13.30 Unspecified hydronephrosis; J44.9 Chronic obstructive pulmonary disease, unspecified; I10 Essential (primary) hypertension; H91.90 Unspecified hearing loss, unspecified ear; F41.9 Anxiety disorder, unspecified; Z88.6 Allergy status to analgesic agent; Z88.0 Allergy status to penicillin; Z88.2 Allergy status to sulfonamides; Z87.891 Personal history of nicotine dependence
CPT/HCPCS: 50590; 52352; 74018; 88300; C1758; J0696; J1100; J2001; J2250; J2405; J2704; J3010; Q9967

== ENCOUNTER → 2019-11-02 | Outpatient (CLI) | payer MEDICARE ==
[~2019-11-02] MED LIST changes: -B&O 60MG R/S 60 MG SUPP PR ONE; -CEFTRIAXONE SOD 1 GM/NS 50 ML 50 ML IV ONE; -DEXAMETHASONE SOD PHOS INJ 4 MG/ML VIAL ONE; -FENTANYL CITRATE/PF 100MCG/2 ML INJ ONE; -IOPAMIDOL 300MG/ML 50ML INFUS..BTL IV ONE; -LIDOCAINE HCL 2% LOCAL INJ 5 ML SDV VIAL INJ ONE; -MIDAZOLAM HCL 2 MG/2 ML VIAL ONE; -ONDANSETRON HCL INJ 2MG/ML 2ML 2 MG/ML VIAL ONE; -PROPOFOL IV EMULSION 10 MG/ML 20 ML VIAL ONE; -SEVOFLURANE INHAL SOLN 250 ML PEN BTL ONE
--- NOTE | 2019-11-02 11:36 | Diagnostic Imaging Report ---
EXAM: ABDOMEN-1VIEW (KUB) DATE: 11/02/2019 10:52 AM INDICATION: Renal calculus COMPARISON: KUB of 08/16/2019 FINDINGS/IMPRESSION: Interval removal of left internal nephroureteral stent. Unchanged calcific densities overlying the right kidney measure up to 6 mm and 3 mm. No definite radiographically apparent renal calculi on the left. No acute osseous injury. Nonobstructive bowel gas pattern. No free air. Signed by: Katia Goode MD on 11/02/2019 11:33 AM
== END ==
LOC: RAD 10:35
PROVIDERS: ATTEND Urology
DX: N20.0 Calculus of kidney (principal)
CPT/HCPCS: 74018

== ENCOUNTER → 2020-03-25 | Day surgery (SDC) | payer MEDICARE ==
[2020-03-21 10:08] LABS: BASOPHILS # (AUTO) 0.1 (0.0-0.1); BASOPHILS % 0.7 % (0.0-1.0); EOSINOPHILS # (AUTO) 0.2 (0.0-0.4); EOSINOPHILS % 2.1 % (0.0-6.0); HEMATOCRIT 47.9 % (38.2-49.6); HEMOGLOBIN 16.4 g/dL (14.0-18.0); LYMPHOCYTES % 21.5 % (18.0-39.1); MEAN CORPUSCULAR HEMOGLOBIN 31.4 pg (28-32); MEAN CORPUSCULAR HGB CONC 34.2 g/dL (31-35); MEAN CORPUSCULAR VOLUME 91.6 fL (81-99); MONOCYTES # (AUTO) 0.6 (0.2-0.8); MONOCYTES % 6.8 % (4.4-11.3); NEUTROPHILS # (AUTO) 6.2 (2.1-6.9); NEUTROPHILS % 68.5 % (38.7-80.0); PLATELET COUNT 131 x10e3/uL (140-360); RED BLOOD COUNT 5.23 x10e6/uL (4.3-5.7); RED CELL DISTRIBUTION WIDTH 12.2 % (11.7-14.4)
[~2020-03-25] MED LIST changes: +AVODART0.5 MG PO; +GLUCAGON FOR INJ 1 MG VIAL ONE; +HYOSCYAMINE 0.125 MG TAB ONE; +POTASSIUM CITR10 MEQ PO; +PROPOFOL IV EMULSION 10 MG/ML 20 ML VIAL ONE; +VITAMIN B-121000 MCG PO
[2020-03-25 19:15] VITALS: BP 151/92
--- NOTE | 2020-03-25 23:28 | Operative Report ---
DATE OF PROCEDURE: 03/25/2020 SURGEON: Tono Leung MD PROCEDURE: Colonoscopy with polypectomy. INDICATIONS FOR COLONOSCOPY: Surveillance colonoscopy, personal history of colon polyps. MEDICATIONS: The patient was done under MAC, please see anesthesiologist's note. PROCEDURE IN DETAIL: With the patient in left lateral decubitus position, a flexible fiberoptic Olympus colonoscope was inserted into the rectum with ease and advanced all the way to the cecum. It was then withdrawn slowly. Mucosa overlying the cecum and ascending colon grossly appeared to be within normal limits. Diverticular disease was noted to be scattered and probably more prominent in the left colon. One polyp was hot snared. One polyp was hot biopsied from the descending colon. One polyp was hot snared from the sigmoid colon. One polyp was hot snared from the rectum. The scope was then retroflexed into the distal rectum and small internal hemorrhoids were noted, none of which was actively bleeding. The scope was then straightened out, it was subsequently withdrawn. The patient tolerated the procedure well. IMPRESSION: 1. Diverticulosis. 2. Descending colon polyps x2, one hot snared and one hot biopsied. 3. Sigmoid colon polyp, hot snared. 4. Rectal polyp, hot snared. 5. Internal hemorrhoids, none actively bleeding. PLAN: Follow up histology. Initiate high-fiber, low-fat diet. Initiate high-fiber supplement. The patient might benefit from a followup colonoscopy in 3 years. Tono Leung MD [facility] [place]/GUY /[id number] cc: Thomas Beckman DO
== END | disposition home or self-care (01) ==
LOC: OR 13:32
PROVIDERS: ATTEND Internal Medicine Gastroenterology
DX: K59.01 Slow transit constipation (principal); K57.30 Diverticulosis of large intestine without perforation or abscess without bleeding; K63.5 Polyp of colon; K62.1 Rectal polyp; K64.8 Other hemorrhoids; K62.5 Hemorrhage of anus and rectum; J44.9 Chronic obstructive pulmonary disease, unspecified; I10 Essential (primary) hypertension; N20.0 Calculus of kidney; F41.9 Anxiety disorder, unspecified; Z88.6 Allergy status to analgesic agent; Z88.0 Allergy status to penicillin; Z88.2 Allergy status to sulfonamides; Z01.810 Encounter for preprocedural cardiovascular examination; Z01.812 Encounter for preprocedural laboratory examination; Z20.828 Contact with and (suspected) exposure to other viral communicable diseases; Z79.82 Long term (current) use of aspirin; Z68.25 Body mass index [BMI] 25.0-25.9, adult
CPT/HCPCS: 36415; 45384; 45385; 85025; 88305; 93005; J1610; J2704; U0002

== ENCOUNTER → 2020-05-02 | Outpatient (CLI) | payer MEDICARE ==
[~2020-05-02] MED LIST changes: -GLUCAGON FOR INJ 1 MG VIAL ONE; -HYOSCYAMINE 0.125 MG TAB ONE; -PROPOFOL IV EMULSION 10 MG/ML 20 ML VIAL ONE
== END ==
LOC: US 11:08
PROVIDERS: ATTEND Urology
DX: R31.21 Asymptomatic microscopic hematuria (principal)
CPT/HCPCS: 74018; 76770

== ENCOUNTER → 2020-12-27 | Outpatient (CLI) | payer MEDICARE ==
[~2020-12-27] MED LIST changes: +IOPAMIDOL 370 MG/ML 200 ML INFUS..BTL INJ ONE; +SODIUM CHLORIDE 0.9% 50ML 50 ML ONE
== END ==
LOC: CT 13:01
PROVIDERS: ATTEND Family Medicine
DX: R10.30 Lower abdominal pain, unspecified (principal); R10.2 Pelvic and perineal pain; R19.09 Other intra-abdominal and pelvic swelling, mass and lump; R19.07 Generalized intra-abdominal and pelvic swelling, mass and lump; R82.81 Pyuria; K43.9 Ventral hernia without obstruction or gangrene; K57.90 Diverticulosis of intestine, part unspecified, without perforation or abscess without bleeding
CPT/HCPCS: 72193; Q9967

== ENCOUNTER 2022-10-14 14:36 | Emergency (ER) | payer MEDICARE ==
[~2022-10-14] VITALS: Ht 172.7 cm; Wt 77.1 kg
[~2022-10-14 14:36] MED LIST changes: -IOPAMIDOL 370 MG/ML 200 ML INFUS..BTL INJ ONE; -SODIUM CHLORIDE 0.9% 50ML 50 ML ONE
[2022-10-14 15:10] VITALS: O2SAT 99
[2022-10-14 15:49] LABS: CLARITY,URINE SL CLOUDY (CLEAR); COLOR,URINE YELLOW (YELLOW); KETONES,URINE NEGATIVE (NEGATIVE); LEUKOCYTE ESTERASE ,URINE NEGATIVE (NEGATIVE); NITRITE,URINE NEGATIVE (NEGATIVE); PROTEIN,URINE DIPSTICK 1+ (NEGATIVE); URINE UROBILINOGEN 0.2 mg/dL (0.2 - 1)
[2022-10-14 16:13] LABS: BACTERIA,URINE MODERATE /HPF; WBC,URINE (MAN) 0-5 /HPF (0-5)
== END 2022-10-14 16:30 | disposition home or self-care (01) ==
LOC: ER 14:41
DX: R10.32 Left lower quadrant pain (principal); N13.2 Hydronephrosis with renal and ureteral calculous obstruction; K76.0 Fatty (change of) liver, not elsewhere classified; K82.9 Disease of gallbladder, unspecified; I10 Essential (primary) hypertension; J44.9 Chronic obstructive pulmonary disease, unspecified
CPT/HCPCS: 74176; 81001; 99284